=== PATIENT | female | born 2000 | race African-American/Black ===

== ENCOUNTER 2023-07-08 09:04 | Inpatient (IN) | payer OTHER ==
[2023-07-08 09:45] VITALS: BMI 35.9
[2023-07-08] MEDS ORDERED: HYDROcodone/Acetaminophen 5/325 mg Tablet PO PRN ×2 (09:46→21:51)
[2023-07-08] MEDS ORDERED: Lidocaine 1% (PF) 30 ML VIAL SC PRN (09:46)
[2023-07-08] MEDS ORDERED: Misoprostol 200 MCG TAB PR PRN (09:46)
[2023-07-08] MEDS ORDERED: hydrALAZINE 20 MG/ML VIAL SLOW IVP PRN ×2 (09:46→21:51)
[2023-07-08] MEDS ORDERED: Acetaminophen 500 MG TAB PO PRN (09:46)
[2023-07-08] MEDS ORDERED: fentaNYL 50 mcg/mL 1 mL Vial SLOW IVP PRN (09:46)
[2023-07-08] MEDS ORDERED: Tranexamic Acid 1,000 MG/10 ML VIAL IVP PRN (09:46)
[2023-07-08] MEDS ORDERED: Methylergonovine 0.2 MG/ML VIAL IM PRN (09:46)
[2023-07-08] MEDS ORDERED: Promethazine HCl 25 MG/ML VIAL IM PRN ×3 (09:46→21:51)
[2023-07-08] MEDS ORDERED: Diphenoxylate HCl/Atropine Tablet PO PRN (09:46)
[2023-07-08] MEDS ORDERED: Ondansetron PF 4 MG/2 ML Vial IVP PRN ×3 (09:46→21:51)
[2023-07-08] MEDS ORDERED: Carboprost 250 MCG/ML AMP IM PRN (09:46)
[2023-07-08] MEDS ORDERED: Lactated Ringer's 1,000 ML IV SCH (10:00)
[2023-07-08] MEDS ORDERED: Oxytocin 30 units/NS 500 ML 500 ML IV SCH ×4 (10:00→21:51)
[2023-07-08 10:34] LABS: Hematocrit 29.9 % (34.9-44.5); Hemoglobin 9.7 g/dL (12.0-15.5); Mean Corpuscular HGB CONC 32.4 g/dL (32.0-36.0); Mean Corpuscular Hemoglobin 26.3 pg (27.0-33.0); Mean Platelet Volume 12.1 fl (7.4-10.4); Platelet Count 214 10x3/uL (150-450); Red Blood Cell (RBC) Count 3.69 10x6/uL (3.90-5.03); White Blood Cell (WBC) Count 8.1 10x3/uL (3.5-10.5)
[2023-07-08 11:29] LABS: HBSAg Index 0.18 S/CO (0-0.99); Hep B Surf Ag - L&D Non-Reactive S/CO (NonReactive)
[2023-07-08 11:30] LABS: Syphilis Antibody Nonreactive (Nonreactive); Syphilis Antibody Index 0.08 S/CO (<1.00 Non-Reactive)
[2023-07-08] MEDS: fentaNYL/Ropivacaine Epidural 100 ML ONE (13:09)
[2023-07-08] MEDS ORDERED: diphenhydrAMINE 50 MG/ML VIAL IVP PRN (13:19)
[2023-07-08] MEDS ORDERED: Moisturizing Cream (Eucerin) 113 GM JAR TOP PRN (13:19)
[2023-07-08] MEDS ORDERED: Acetaminophen 325 MG TAB PO PRN (13:19)
[2023-07-08] MEDS ORDERED: Naloxone HCl 0.4 mg/ml Vial IVP PRN ×2 (13:19)
[2023-07-08] MEDS ORDERED: ePHEDrine Sulfate 50 MG/10 ML VIAL SLOW IVP PRN (13:19)
[2023-07-08] MEDS ORDERED: Lactated Ringer's 500 ML IV PRN (13:19)
[2023-07-08] MEDS ORDERED: fentaNYL 2 mcg/Ropivacaine 0.2% Epidural 100 ML CADD EPIDURAL SCH (13:30)
[2023-07-08] MEDS ORDERED: Communication Order-Pharmacy FS SCH (13:30)
[2023-07-08] MEDS: Ibuprofen 800 MG TAB PO PRN (20:00)
[2023-07-08] MEDS: CEFAZOLIN 2 GM in Sodium Chloride 0.9% 100 ML IVPB SCH (20:03)
[2023-07-08] MEDS: Azithromycin 500 MG in Sodium Chloride 0.9% 250 ML 250 ML IVPB SCH (21:13)
[2023-07-08] MEDS ORDERED: Milk Of Magnesia 30 ML UDCUP PO PRN (21:51)
[2023-07-08] MEDS ORDERED: Bisacodyl 10 MG SUPP PR PRN (21:51)
[2023-07-08] MEDS ORDERED: diphenhydrAMINE 25 MG CAP PO PRN (21:51)
[2023-07-08] MEDS: Oxytocin 30 units/NS 500 ML 500 ML ONE (22:22)
[2023-07-09] MEDS: Ibuprofen 800 MG TAB PO SCH (03:51)
[2023-07-09] MEDS: Docusate 100 MG CAP PO SCH ×2 (04:20→08:02)
[2023-07-09] MEDS: Boostrix 0.5 ML (Tdap) VIAL (>/=7 yrs of age) IM ONE (07:29)
[2023-07-09] MEDS: Ferrous Sulfate 325 MG TAB PO SCH (08:02)
[2023-07-09] MEDS: Prenatal Vitamin 1 TAB PO SCH (08:02)
[2023-07-10 08:07] VITALS: BP 137/92; TEMP 98.7
== END 2023-07-10 11:15 | disposition home or self-care (01) | DRG 807 ==
LOC: CSHLD 09:04 → CSHPP 21:35
PROVIDERS: ADMIT Family Medicine; ATTEND Family Medicine
PROC: 10E0XZZ Delivery of Products of Conception, External Approach (ICD-10-PCS; principal; 2023-07-08)
PROC: 10D17Z9 Manual Extraction of Products of Conception, Retained, Via Natural or Artificial Opening (ICD-10-PCS; 2023-07-08)
PROC: 10907ZC Drainage of Amniotic Fluid, Therapeutic from Products of Conception, Via Natural or Artificial Opening (ICD-10-PCS; 2023-07-08)
PROC: 3E0234Z Introduction of Serum, Toxoid and Vaccine into Muscle, Percutaneous Approach (ICD-10-PCS; 2023-07-09)
DX: O73.0 Retained placenta without hemorrhage (principal); Z37.0 Single live birth; Z3A.37 37 weeks gestation of pregnancy; Z88.8 Allergy status to other drugs, medicaments and biological substances; Z23 Encounter for immunization
CPT/HCPCS: 36415; 51702; 85027; 85461; 86780; 86850; 86900; 86901; 87340; 90384; 96372; J0456; J3490; J7050

== ENCOUNTER 2024-04-06 12:05 | Emergency (ER) | payer OTHER | END 2024-04-06 12:50 | disposition home or self-care (01) | LOC: CSHERS 12:05 | DX: R13.10 Dysphagia, unspecified (principal) | CPT/HCPCS: 99283 ==